=== PATIENT | female | born 1970 ===

== ENCOUNTER 2016-06-29 13:43 | Emergency (ER) | payer SELFPAY ==
[~2016-06-29] VITALS: Ht 167.6 cm; Wt 59.0 kg
[2016-06-29 13:44] VITALS: BP 134/79; PULSE 112; RESP 20; TEMP 98.8; O2SAT 99
--- NOTE | 2016-06-29 14:01 | PD ---
Physical Exam Date Seen by Provider: Jun 29, 2016 Time Seen by Provider: 13:54 Narrative 45 y/o herre with Hx. HTN and need for medication. Patient was taking Amlodipine 10md, Lisinopril 10 mg, Nifedipine 20mg and Plavix 75mg. Patient has run out and has been having DAHL. She recently moved here from [facility] in February and has no PCP locally. Patient has no other complaints. V/S currently Stable. Patient awaiting med bed. Data Data Last Documented VS Vital Signs Date Time Temp Pulse Resp B/P Pulse Ox O2 Delivery O2 Flow Rate FiO2 06/29/16 13:44 98.8 112 20 134/79 99 Room Air [facility] Medical Record Reviewed: Yes Supervised Visit with AINSLEY: Yes Condition: Stable Bill Rodrigues Jun 29, 2016 14:01
[2016-06-29] MEDS ORDERED: NIFE10CA PO (14:06)
[2016-06-29] MEDS ORDERED: AMLO10TA2 PO (14:06)
[2016-06-29] MEDS ORDERED: LISI10TA3 PO (14:06)
[2016-06-29] MEDS ORDERED: CLOP75TA PO (14:06)
[2016-06-29 14:38] VITALS: PULSE 88; RESP 16; O2SAT 97
--- NOTE | 2016-06-29 14:48 | PD ---
HPI Chief Complaint: Medication Refill Request Time Seen by Provider: 14:41 Travel History International Travel<30 days: No Contact w/Intl Traveler<30days: No Traveled to known affect area: No History of Present Illness HPI 45-year-old female presents to the emergency department requesting prescription refills on amlodipine, lisinopril, nifedipine, and Clopidogrel. The last time the patient took amlodipine, lisinopril, nifedipine was 3 months ago when she states that she had a headache. She says she only gets high blood pressure occasionally and takes the medications as needed. She did take amlodipine, lisinopril, nifedipine yesterday and today because she had a headache and said she couldn't sleep at night. She is from [place] and she took her last pills of the amlodipine, lisinopril, nifedipine today. The patient is also requesting a refill on Clopidogrel, which she last took last November, and says she was told to take it for her blood pressure also. She does not have a establish primary care provider at this time. She denies fever, chills, nausea, vomiting , abdominal pain, headache, lightheadedness, dizziness, diaphoresis, chest pain , shortness of breath. She has no other medical complaints. Allergies to sulfa and tramadol. No other modifying factors or associated signs and symptoms. History Social History Alcohol Use: No Tobacco Use: No Allergies-Medications (Allergen,Severity, Reaction): Coded Allergies: Sulfa (Verified Allergy, Unknown, 06/29/16) pt states "tightness in my chest." Tramadol (Verified Allergy, Unknown, 06/29/16) Reported Meds & Prescriptions Reported Meds & Active Scripts Active Reported Nifedipine Unknown Strength Cap Unknown Dose PO TID Clopidogrel (Clopidogrel Bisulfate) 75 Mg Tab 75 Mg PO DAILY Lisinopril 10 Mg Tab 10 Mg PO DAILY Amlodipine (Amlodipine Besylate) 10 Mg Tab 10 Mg PO DAILY Review of Systems Except as stated in HPI: all other systems reviewed are Neg Physical Exam Narrative GENERAL: Well-nourished, well-developed female patient, in no acute distress SKIN: Warm and dry. HEAD: Atraumatic. Normocephalic. EYES: Pupils equal and round. No scleral icterus. No injection or drainage. ENT: Mucosa pink and moist. Airway patent. NECK: Trachea midline. CARDIOVASCULAR: Regular rate and rhythm. No murmur appreciated. RESPIRATORY: No accessory muscle use. Breath sounds clear and equal bilaterally. GASTROINTESTINAL: Abdomen soft, non-tender, nondistended. MUSCULOSKELETAL: No obvious deformities. No clubbing. No cyanosis. No edema. NEUROLOGICAL: Awake and alert. Oriented 3. No obvious cranial nerve deficits. Motor grossly within normal limits. Normal speech. PSYCHIATRIC: Appropriate mood and affect; insight and judgment normal. Data Data Last Documented VS Vital Signs Date Time Temp Pulse Resp B/P Pulse Ox O2 Delivery O2 Flow Rate FiO2 06/29/16 14:38 88 16 97 Room Air 06/29/16 13:44 98.8 134/79 MDM Medical Screen Exam Complete: Yes Emergency Medical Condition: No Differential Diagnosis Medication refill, medical clearance, hypertension Narrative Course 45-year-old female requesting prescription refills on amlodipine, lisinopril, nifedipine, and Clopidogrel. She is from [place] and takes the medications as needed for high blood pressure. She has taken the medications yesterday and today, but last took them 3 months ago prior to the last 2 days. She says she takes them as needed when she has a headache and her blood pressure is high. She last took Clopidogrel last November. The patient's vital signs are stable at this time. Her blood pressure is 134/79 and her heart rate on reexamination is approximately 80-90 bpm. The highest blood pressure the patient can report in the last 2 days is 150/100. The patient denies symptoms of hypertensive crisis at this time. I do not feel comfortable providing the patient with the requested prescriptions at this time. I discussed this with the patient and she verbalizes understanding and agreement. I discussed reasons for the patient to return to the emergency department and she verbalized understanding and agreement. Vital signs are stable and the patient is stable for outpatient follow-up and treatment. The patient has no urgent or emergent medical complaints. There is no emergent or urgent medical need at this time. I instructed the patient to follow up with their primary care provider. A medical screening exam was performed: At the time of evaluation the presenting medical condition was determined not to be of an emergent nature. The patient was given the option of receiving additional care, but declined. Patient was given options for additional community resources from which to obtain care. The Patient Has Been advised to seek medical attention for their presenting complaint. The patient has been advised to return to the ER at any time if an emergent condition develops. Primary Impression: Encounter for medical screening examination Condition: Stable Andria Bustos [employer] Jun 29, 2016 14:48
== END 2016-06-29 15:11 | disposition left against medical advice (07) ==
LOC: NEPK 13:43
DX: I10 Essential (primary) hypertension (principal)
CPT/HCPCS: 99281